=== PATIENT | female | born 1990 | race Caucasian/White ===

== ENCOUNTER 2017-05-06 01:07 | Emergency (ER) | payer OTHER ==
[~2017-05-06] VITALS: Ht 172.7 cm; Wt 84.4 kg
--- NOTE | 2017-05-06 01:38 | NUR ---
Dr. Mccrary at bedside for MSE.
[2017-05-06] MEDS ORDERED: HYDROCODONE/APAP 5-325MG TABLET ONE (01:48)
--- NOTE | 2017-05-06 01:59 | NUR ---
Patient discharged to home in stable conditon. Written and verbal after care instructions given. Patient verbalizes understanding of instructions. Patient ambulated out of ER with steady gait, all belongings taken.
[2017-05-06] MEDS ORDERED: HYDROCODONE/APAP 5-325MG TABLET PO ONE (02:00)
[2017-05-06 03:30] VITALS: BP 146/107
== END 2017-05-06 02:00 | disposition home or self-care (01) ==
LOC: ER 01:14
DX: M72.2 Plantar fascial fibromatosis (principal); M25.571 Pain in right ankle and joints of right foot; I10 Essential (primary) hypertension; F41.9 Anxiety disorder, unspecified; F12.10 Cannabis abuse, uncomplicated
CPT/HCPCS: A4663